=== PATIENT | male | born 1985 ===

== ENCOUNTER 2019-09-11 23:07 | Outpatient (CLI) | payer SELFPAY | END 2019-09-11 23:59 | disposition EMS.NT | LOC: EMS 23:07 | PROVIDERS: ATTEND Surgery | DX: R42 Dizziness and giddiness (principal); V58.5XXA Driver of pick-up truck or van injured in noncollision transport accident in traffic accident, initial encounter; Y92.410 Unspecified street and highway as the place of occurrence of the external cause ==